=== PATIENT | female | born 1985 | race American Indian/Alaskan Native ===

== ENCOUNTER 2018-09-20 08:48 | Outpatient (CLI) | payer OTHER ==
--- NOTE | 2018-09-20 09:20 | XRay Report ---
XRAY LUMBAR SPINE THREE VIEWS: 09/20/18 08:48:00 CLINICAL: Disability exam. FINDINGS: Normal vertebral body height, alignment and disk spaces. The pedicles are intact. No fracture. Normal soft tissues. IMPRESSION: Normal lumbar spine.
== END 2018-09-20 08:49 | disposition home or self-care (01) ==
LOC: XRAY 08:48
PROVIDERS: ATTEND Internal Medicine
DX: Z02.71 Encounter for disability determination (principal); F32.9 Major depressive disorder, single episode, unspecified
CPT/HCPCS: 72100

== ENCOUNTER 2020-12-25 19:53 | Emergency (ER) | payer OTHER ==
[2020-12-25 21:37] VITALS: BP 97/64
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
== END 2020-12-25 22:30 | disposition home or self-care (01) ==
LOC: ED 19:53
DX: R20.0 Anesthesia of skin (principal)
CPT/HCPCS: 99282

== ENCOUNTER 2021-02-26 10:45 | Outpatient (CLI) | payer OTHER ==
--- NOTE | 2021-02-26 12:36 | XRay Report ---
LUMBOSACRAL SPINE 3 VIEWS INDICATION: BACK PAIN. COMPARISON: None. IMPRESSION: Normal alignment. No significant discogenic DJD or facet arthropathy. The visualized sa raji and SI joints are unremarkable. No acute osseous or soft tissue abnormality. Signer Name: Tyler Chow Jr, MD Signed: 02/26/2021 12:31 PM Workstation Name: [id number]
== END 2021-02-26 10:46 | disposition home or self-care (01) ==
LOC: PF 10:45
PROVIDERS: ATTEND Internal Medicine
DX: M51.36 Other intervertebral disc degeneration, lumbar region (principal); Z02.71 Encounter for disability determination; J44.9 Chronic obstructive pulmonary disease, unspecified; M79.7 Fibromyalgia; F41.8 Other specified anxiety disorders; F43.10 Post-traumatic stress disorder, unspecified
CPT/HCPCS: 72100